=== PATIENT | male | born 2000 | race Two or more races ===

== ENCOUNTER 2025-03-14 12:50 | Emergency (ER) | payer OTHER ==
[~2025-03-14] VITALS: Ht 177.8 cm; Wt 61.2 kg
[2025-03-14] MEDS ORDERED: LIDOCAINE 1%-EPI 1:100,000 20 ML VIAL ONE (13:20)
[2025-03-14] MEDS ORDERED: TDAP [DIPH/PERTUSSIS/TET] 0.5 ML VIAL IM ONE (13:21)
[2025-03-14] MEDS: LIDOCAINE 1%-EPI 1:100,000 20 ML VIAL TP ONE (13:26)
[2025-03-14] MEDS: TDAP [DIPH/PERTUSSIS/TET] 0.5 ML VIAL IM ONE (13:33)
[2025-03-14 13:42] VITALS: BP 119/73; TEMP 98.7; O2SAT 100
== END 2025-03-14 13:43 | disposition home or self-care (01) ==
LOC: ER 12:50
DX: S51.811A Laceration without foreign body of right forearm, initial encounter (principal); W26.8XXA Contact with other sharp object(s), not elsewhere classified, initial encounter; Y93.89 Activity, other specified; Y92.69 Other specified industrial and construction area as the place of occurrence of the external cause; Y99.0 Civilian activity done for income or pay
CPT/HCPCS: 12002; 90471; 90715; 99283; J3490